=== PATIENT | female | born 1995 | race Caucasian/White ===

== ENCOUNTER 2017-12-04 21:14 | Emergency (ER) | payer SELFPAY ==
[~2017-12-04] VITALS: Ht 142.2 cm; Wt 45.5 kg
[2017-12-04 21:39] VITALS: BP 130/78; PULSE 83; RESP 16; TEMP 99.1; O2SAT 98
[2017-12-04] MEDS ORDERED: ONDANSETRON ODT 4 MG TAB PO ONE (22:15)
--- NOTE | 2017-12-04 22:29 | PD ---
HPI Chief Complaint: Related Problem Time Seen by Provider: 21:59 Travel History International Travel<30 days: No Contact w/Intl Traveler<30days: No Traveled to known affect area: No History of Present Illness HPI 22yo F here with lower abdominal pain that started around 8pm tonight. + Nausea. Pain is lower abdomen and radiates to lower back. Pain is more suprapubic and to the left of it. Pt recently diagnosed with left ectopic 3 weeks ago by her OBGYN in [place]. Pt was given methotrexate IM by her OBGYN 3 weeks ago. Then she was given a second dose of methotrexate 6 days ago. Said her bHCG was going up and down and her last bHCG was 320 6 days ago. Pt has had right ectopic s/p salpingectomy. 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 Has been having vaginal bleeding since her first methotrexate. Denies any fever, chest pain, sob, vomiting, vaginal discharge. PFSH Past Medical History Medical History: Denies Significant Hx ?: Ectopic : Yes (Current) Past Surgical History Gynecologic Surgery: Yes (R tubal removal s/p ectopic) Other Surgery: Yes (L ankle fx.) Social History Alcohol Use: No Tobacco Use: No Substance Use: No Allergies-Medications (Allergen,Severity, Reaction): Coded Allergies: peanut (Verified Allergy, Severe, Anaphylaxis, 12/04/17) sulfamethoxazole (Verified Allergy, Severe, Anaphylaxis, 12/04/17) trimethoprim (Verified Allergy, Severe, Anaphylaxis, 12/04/17) Reported Meds & Prescriptions Reported Meds & Active Scripts Active Tylenol (Acetaminophen) 325 Mg Tab 650 Mg PO Q6H PRN Macrobid (Nitrofurantoin Monoh/Nitrofur Macro) 100 Mg Cap 100 Mg PO BID 5 Days Zofran Odt (Ondansetron Odt) 4 Mg Tab 4 Mg SL Q12HR PRN Review of Systems Except as stated in HPI: all other systems reviewed are Neg Physical Exam Narrative GENERAL: 22yo F in mild distress. SKIN: Focused skin assessment warm/dry. HEAD: Atraumatic. Normocephalic. EYES: Pupils equal and round. No scleral icterus. No injection or drainage. ENT: No nasal bleeding or discharge. Mucous membranes pink and moist. NECK: Trachea midline. No JVD. CARDIOVASCULAR: Regular rate and rhythm. No murmur appreciated. RESPIRATORY: No accessory muscle use. Clear to auscultation. Breath sounds equal bilaterally. GASTROINTESTINAL: Abdomen soft, +TTP suprapubic, Left lower abdomen. +TTP epigastric region. No TTP RLQ. No rebound tenderness or guarding. PELVIC: +Brown mucous. No CMT or adnexal tenderness bilaterally. MUSCULOSKELETAL: No obvious deformities. No clubbing. No cyanosis. No edema. NEUROLOGICAL: Awake and alert. No obvious cranial nerve deficits. Motor grossly within normal limits. Normal speech. PSYCHIATRIC: Appropriate mood and affect; insight and judgment normal. Data Data Last Documented VS Vital Signs Date Time Temp Pulse Resp B/P (MAP) Pulse Ox O2 Delivery O2 Flow Rate FiO2 12/04/17 21:39 99.1 83 16 130/78 (95) 98 Orders Orders Complete Blood Count With Diff (12/04/17 22:11) Prothrombin Time / Inr (Pt) (12/04/17 22:11) Act Partial Throm Time (Ptt) (12/04/17 22:11) Type And Screen (12/04/17 22:11) Gc And Chlamydia Pcr (12/04/17 22:11) Wet Prep Profile (12/04/17 22:11) Beta Hcg (Quant/Titer) (12/04/17 22:11) Urinalysis - C+S If Indicated (12/04/17 22:11) Lipase (12/04/17 22:11) Comprehensive Metabolic Panel (12/04/17 22:11) Ondansetron Odt (Zofran Odt) (12/04/17 22:15) Morphine Inj (Morphine Inj) (12/04/17 22:30) Us Pelvis (Ques Pr/Ect)W Trans (12/04/17 ) Ed Discharge Order (12/05/17 00:27) Labs Laboratory Tests Test 12/04/17 22:46 White Blood Count 7.4 TH/MM3 Red Blood Count 3.80 MIL/MM3 Hemoglobin 11.6 GM/DL Hematocrit 33.6 % Mean Corpuscular Volume 88.5 FL Mean Corpuscular Hemoglobin 30.4 PG Mean Corpuscular Hemoglobin Concent 34.4 % Red Cell Distribution Width 12.9 % Platelet Count 234 TH/MM3 Mean Platelet Volume 8.5 FL Neutrophils (%) (Auto) 40.4 % Lymphocytes (%) (Auto) 50.3 % Monocytes (%) (Auto) 7.7 % Eosinophils (%) (Auto) 1.4 % Basophils (%) (Auto) 0.2 % Neutrophils # (Auto) 3.0 TH/MM3 Lymphocytes # (Auto) 3.7 TH/MM3 Monocytes # (Auto) 0.6 TH/MM3 Eosinophils # (Auto) 0.1 TH/MM3 Basophils # (Auto) 0.0 TH/MM3 CBC Comment DIFF FINAL Differential Comment Prothrombin Time 11.3 SEC Prothromb Time International Ratio 1.1 RATIO Activated Partial Thromboplast Time 25.4 SEC Urine Color YELLOW Urine Turbidity HAZY Urine pH 6.0 Urine Specific [place] 1.023 Urine Protein NEG mg/dL Urine Glucose (UA) NEG mg/dL Urine Ketones TRACE mg/dL Urine Occult Blood MOD Urine Nitrite NEG Urine Bilirubin NEG Urine Urobilinogen 4.0 OR GREATER mg/dL Urine Leukocyte Esterase TRACE Urine RBC 1 /hpf Urine WBC 8 /hpf Urine Squamous Epithelial Cells 3 /hpf Urine Uric Acid Crystals RARE /hpf Urine Bacteria RARE /hpf Urine Mucus FEW /lpf Microscopic Urinalysis Comment CULT NOT INDICATED Clue Cells (Wet Prep) NONE SEEN Vaginal Trichomonas (Wet Prep) NONE SEEN Vaginal Yeast (Wet Prep) NONE SEEN Blood Urea Nitrogen 11 MG/DL Creatinine 0.61 MG/DL Random Glucose 84 MG/DL Total Protein 7.2 GM/DL Albumin 4.2 GM/DL Calcium Level 8.7 MG/DL Alkaline Phosphatase 58 U/L Aspartate Amino Transf (AST/SGOT) 11 U/L Alanine Aminotransferase (ALT/SGPT) 16 U/L Total Bilirubin 0.8 MG/DL Sodium Level 145 MEQ/L Potassium Level 3.4 MEQ/L Chloride Level 111 MEQ/L Carbon Dioxide Level 23.7 MEQ/L Anion Gap 10 MEQ/L Estimat Glomerular Filtration Rate 122 ML/MIN Lipase 365 U/L Human Chorionic Gonadotropin, Quant 40 MIU/ML MDM Medical Decision Making Medical Screen Exam Complete: Yes Emergency Medical Condition: Yes Differential Diagnosis Ectopic vs. ruptured ectopic vs. cystitis vs. musculoskeletal pain Narrative Course 22yo F with lower abdominal pain today. Labs reviewed, no leukocytosis. H/H 11.6/33.6. BHCG is only 40 today, trending down from 6 days ago. Lipase normal. UA showed WBC 8. Rare bacteria. Pt has suprapubic tenderness, and has increase urinary frequency so will treat. Wet prep negative. US pelvis showed dilated fallopian tube on the left. No hyperemic masses are identified. No intrauterine gestational sac is identified. Trace free fluid in cul-de- sac. I discussed findings with OB hospitalist Dr. Mata who said this is normal finding on ultrasound after methotrexate. Said there is no acute intervention from OBGYN's point of view. Advised pt not to try to get for 6 months and to follow up with her OBGYN. Said with this bHCG there is really no chance of rupture. Pt given zofran and morphine. Abdominal pain has resolved. Tolerating PO. Pt is well appearing. Return precautions given. Diagnosis Primary Impression: Abdominal pain Qualified Codes: R10.30 - Lower abdominal pain, unspecified Patient Instructions: General Instructions Departure Forms: Tests/Procedures Additional Instructions: Please follow up with your OBGYN. Return to the ED if symptoms worsen. Med/Other Pt SpecificInfo: Prescription(s) given Scripts Acetaminophen (Tylenol) 325 Mg Tab 650 MG PO Q6H Y for PAIN SCALE 1 TO 4, #20 TAB 0 Refills Prov: Marry Cuellar DO 12/05/17 Nitrofurantoin Monohydrate Macrocrystals (Macrobid) 100 Mg Cap 100 MG PO BID for Infection for 5 Days, #10 CAP 0 Refills Prov: Marry Cuellar DO 12/05/17 Ondansetron Odt (Zofran Odt) 4 Mg Tab 4 MG SL Q12HR Y for Nausea/Vomiting, #6 TAB 0 Refills Prov: Marry Cuellar DO 12/05/17 Disposition: 01 DISCHARGE HOME Condition: Stable Marry Cuellar DO Dec 04, 2017 22:29
[2017-12-04] MEDS ORDERED: MORPHINE SULFATE 2 MG/ML SYRINGE IV PUSH ONE (22:30)
[2017-12-04 23:13] LABS: BACTERIA, URINE RARE /hpf; BILIRUBIN, URINE NEG (NEG); BLOOD, URINE MOD (NEG); GLUCOSE,URINE NEG (NEG); INTERNATIONAL NORMALIZED RATIO 1.1 RATIO; KETONE, URINE TRACE mg/dL (NEG); MUCUS URINE FEW /lpf (OCC); NITRITE,URINE NEG (NEG); PROTHROMBIN TIME - PATIENT 11.3 SEC (9.8-11.6); SQUAMOUS EPITHELIAL CELL URINE 3 /hpf (0-5); URIC ACID CRYSTALS, URINE RARE /hpf; URINE COLOR YELLOW (YELLW/STRAW); URINE LEUKOCYTE ESTERASE TRACE (NEG)
[2017-12-04 23:23] LABS: ALBUMIN 4.2 GM/DL (3.4-5.0); ALT (GPT) 16 U/L (10-53); AST (GOT) 11 U/L (15-37); BICARBONATE 23.7 MEQ/L (21.0-32.0); BLOOD UREA NITROGEN 11 MG/DL (7-18); CALCIUM 8.7 MG/DL (8.5-10.1); CHLORIDE 111 MEQ/L (98-107); CREATININE 0.61 MG/DL (0.50-1.00); GLOMERULAR FILTRATION RATE 122 ML/MIN (>89); GLUCOSE,RANDOM 84 MG/DL (74-106); SODIUM (NA) 145 MEQ/L (136-145)
[2017-12-04 23:26] LABS: ALKALINE PHOSPHATASE 58 U/L (45-117); TOTAL BILIRUBIN ADULT 0.8 MG/DL (0.2-1.0); TOTAL PROTEIN 7.2 GM/DL (6.4-8.2)
[2017-12-04 23:40] LABS: BASOPHIL % 0.2 % (0.0-2.0); EOSINOPHIL # 0.1 TH/MM3 (0-0.4); EOSINOPHIL % 1.4 % (0.0-4.0); HEMATOCRIT 33.6 % (35.0-46.0); HEMOGLOBIN 11.6 GM/DL (11.6-15.3); LYMPH % 50.3 % (9.0-44.0); LYMPHOCYTE # 3.7 TH/MM3 (1.0-4.8); MEAN CELL VOLUME 88.5 FL (80.0-100.0); MEAN CORPUSCULAR HEMOGLOBIN 30.4 PG (27.0-34.0); MEAN CORPUSCULAR HGB CONC 34.4 % (32.0-36.0); MEAN PLATELET VOLUME 8.5 FL (7.0-11.0); MONO % 7.7 % (0.0-8.0); MONOCYTE # 0.6 TH/MM3 (0-0.9); NEUT % 40.4 % (16.0-70.0); PLATELET COUNT 234 TH/MM3 (150-450); RED CELL DISTRIBUTION WIDTH 12.9 % (11.6-17.2); WHITE BLOOD COUNT 7.4 TH/MM3 (4.0-11.0)
--- NOTE | 2017-12-05 00:01 | RADRPT ---
EXAM DATE: 12/04/2017 11:50 PM EDT AGE/SEX: 22 years / Female INDICATIONS: Pelvic pain. Ectopic. CLINICAL DATA: This is the patient's initial encounter. Patient reports that signs and symptoms have been present for 2 weeks and indicates a pain score of 6/10. MEDICAL/SURGICAL HISTORY: . Ectopic x2. . Right salpingectomy 03/2017. COMPARISON: No prior exams available for comparison. MEASUREMENTS: Uterus:__6.6 x 3.1 x 4.5 cm Endometrial Stripe:__3 mm Right Ovary:__ 2.9 x 1.7 x 1.9 cm Left Ovary:__ 2.5 x 1.3 x 2.1 cm FINDINGS: Uterus: The myometrium has homogeneous echotexture without mass. Endometrial Stripe 4mm Right Ovary: Ovary contains no mass or significant cystic lesion. Left Ovary: Ovary contains no mass or significant cystic lesion. The patient does have a dilated fal lopian tube adjacent to left ovary Fluid: Trace free fluid. Other: CONCLUSION: 1. Dilated fallopian tube on the left. No hyperemic masses are identified. No intrauterine gestation al sac is identified. Trace free fluid in cul-de-sac. Electronically signed by: Raheel Carrillo MD 12/05/2017 12:00 AM EDT
[2017-12-05] MEDS ORDERED: MACR100C2 PO (00:27)
[2017-12-05] MEDS ORDERED: ZOFR4TAB3 SL (00:27)
[2017-12-05] MEDS ORDERED: TYLE325T PO (00:27)
== END 2017-12-05 01:07 | disposition home or self-care (01) ==
LOC: NEPD 21:14
DX: R10.30 Lower abdominal pain, unspecified (principal); O00.90 Unspecified ectopic pregnancy without intrauterine pregnancy
CPT/HCPCS: 76700; 76817; 80053; 81001; 83690; 84702; 85025; 85610; 85730; 86850; 86900; 86901; 87210; 87491; 87591; 99284